=== PATIENT | female | born 1965 | race Caucasian/White ===

== ENCOUNTER 2016-08-08 02:49 | Emergency (ER) | payer SELFPAY ==
--- NOTE | 2016-08-08 02:57 | ED CLINICAL REPORT ---
Clinical Report - Physicians/Mid Levels [facility] [address] [place] [address] 08/08/2016 2:51 Patient: DAKOTA ZHANG Time Seen: 03:40. Arrived- By private vehicle. Historian- patient. HISTORY OF PRESENT ILLNESS Location of injuries- chest. Chief Complaint: Injury to CHEST. The injury occurred about 1 month ago, but exacerbated tonight. (PT fell about a month ago and injured her L ribs. She states that x-rays didn't show anything at the time. She states that she was coughing tonight, when she suddenly felt a "pop" in her L lateral chest wall, and noted a sudden pain in the area, wrapping around toward the back and under her L breast.). Occurred at home. The patient complains of moderate pain. No blow to the head, neck pain, loss of consciousness or seizure. Not dazed. REVIEW OF SYSTEMS No numbness, weakness, hearing loss, headache or loss of vision. No nausea, bladder dysfunction, laceration, fever or vomiting. She has had chest pain. She has had difficulty breathing (hurts to take a deep breath). Has not recently been ill. All systems otherwise negative, except as recorded above. PAST HISTORY Problems: Degenerative Joint Disease. Herniated Disk. Tetanus Status. Endometritis. Constipation. Depression. Gastroesophageal Reflux Disease. Immunizations. LNMP - Last Normal Menstrual Period. Additional Surgeries: Cholecystectomy. Colonoscopy. . Endometrial biopsy. Hysterectomy. Qveries . Medications: CeleXA Oral. Allergies: No Known Drug Allergy. SOCIAL HISTORY Smoker- current status unknown. No alcohol use or drug use. ADDITIONAL NOTES The nursing notes have been reviewed. PHYSICAL EXAM Vital Signs: 08/08/2016 02:57 BP: 139/77. HR: 73. RR: 18. O2 saturation: 97%. Temp: 98.0 F. Have been reviewed. Appearance: Alert. Oriented X3. Patient in mild distress. Distress appears due to pain. Head: Head non-tender. No swelling of head. Eyes: Pupils equal, round and reactive to light. EOM intact. ENT: No dental injury. Pharynx normal. Neck: Painless ROM. Non-tender. CVS: Heart sounds normal. Pulses normal. Respiratory: Chest wall injury: moderate tenderness located in the middle, left and lateral chest. No swelling. No laceration. No abrasion. No ecchymosis. No deformity. Breath sounds normal. Abdomen: No visible injury. Soft and nontender. Back: No tenderness. ROM normal. Skin: Skin intact. Skin warm and dry. Normal skin color. Normal skin turgor. Extremities: Normal inspection. Pelvis stable. Extremities atraumatic. No lower extremity edema. Neuro: Oriented X 3. No motor deficit. No sensory deficit. LABS, X-RAYS, AND EKG Sternum / Ribs X-rays: No fracture present. Normal lung markings present. Soft tissues normal. No bony lesion present. Views: left ribs. AP of chest. The X-rays were independently viewed by me and interpreted contemporaneously by me. Pulse Oximetry: 08/08/2016 02:57 O2 saturation: 97%. (FIO2 - room air). Interpretation: normal. PROGRESS AND PROCEDURES Course of Care: Pt was given IM Toradol and Dilaudid, with improvement in her sx. X-ray series showed no fractures. No emergent condition identified. Patient and spouse counseled in person regarding the patient's stable condition, test results, diagnosis and need for follow-up. Concerns were addressed. Old medical records reviewed. Disposition: Discharged. Condition: stable and improved. CLINICAL IMPRESSION Chest wall pain .12 lead EKG performed. INSTRUCTIONS Warnings: SEDATIVE MEDICATION: You were given sedative medication during your visit. Do not drive or operate dangerous machinery for 6 hours. GENERAL WARNINGS: Return or contact your physician immediately if your condition worsens or changes unexpectedly, if not improving as expected, or if other problems arise. Your Current Medications: CONTINUE TAKING THE FOLLOWING MEDICATIONS: CeleXA Oral. Prescription Medications: Oxycodone 5 mg tablets: take 1 orally every 6 hours as needed for pain. Dispense fifteen (15). No refill. Follow-up: Follow up with your doctor in three weeks if not better. Understanding of the discharge instructions verbalized by patient and family. (Electronically signed by Lydia Calderon MD 08/08/2016 8:11)
--- NOTE | 2016-08-08 03:04 | ED NURSING NOTES ---
Clinical Report - Nurses [facility] [address] [place] [address] 08/08/2016 2:51 Patient: DAKOTA ZHANG TRIAGE Triage time 02:57. Acuity: LEVEL 4. Chief Complaint: FALL (pt on ice a month ago and complains of rib pain on the left side tonight). --03:02 TonyaB, R.N. 02:57 08/08/16. BP: 139/77. HR: 73. RR: 18. O2 saturation: 97%. Temp: 98.0 F. Pain level now 03/15. --03:02 TonyaB, R.N. Weight: 95.2 kg. Height/Length: 64 inches. BMI: 36.1. --03:00 TonyaB, R.N. Medications CeleXA Oral. --02:59 TonyaB, R.N. Allergies No Known Drug Allergy. --02:58 TonyaB, R.N. History Arrived by private vehicle. Historian: patient. Accompanied by family. This occurred (1 months). Limited ROM present. She has had difficulty breathing. No loss of consciousness. No alteration in mental status, dizziness, neck pain, extremity pain or back pain. No trouble walking. Treatment BODY MAN: None. Trauma activation: Pre-hospital notification of patient arrival was not received. PAST MEDICAL HX: Positive. Tetanus status: up-to-date. Immunizations: up-to-date. SOCIAL HX: Current every day smoker. No alcohol use or drug use. No infectious disease exposure. SELF HARM ASSESSMENT: A self harm assessment was performed. The patient answered "no" to the question "Have you recently felt down, depressed, or hopeless?", "Have you noticed less interest or pleasure in doing things?", "Do you have thoughts of harming or killing yourself?", "Are you here because you tried to hurt yourself?", "Have you ever tried to hurt yourself before today?", "Have you recently had thoughts about harming or killing others?" and "Do you have any dangerous items in your possession?". FALL RISK ASSESSMENT: Fall risk assessment completed. No fall risk identified. NUTRITIONAL RISK ASSESSMENT: The nutritional risk assessment revealed no deficiencies. FUNCTIONAL ASSESSMENT: Functional assessment: no impairments noted. LEARNING NEEDS ASSESSMENT: The learning needs assessment revealed no barriers. SKIN INTEGRITY ASSESSMENT: Skin integrity risk assessment completed. No skin integrity risk identified. --03:02 Allie Mcclain Interventions ID band on patient. To treatment room. --03:02 Allie Mcclain PHYSICAL ASSESSMENT GENERAL / NEURO / PSYCH: Alert. Oriented X 4. Appears in pain. HEENT: Pupils equal, round and reactive to light. Head non-tender. RESPIRATORY: Chest wall injury: tenderness. CVS: Normal heart rate and rhythm. Pulses within normal limits. Capillary refill less than 2 seconds. GI / : Abdomen soft and nontender. EXTREMITIES: Extremities exhibit normal ROM. Neuro-vascular status intact to the extremity. SKIN: Skin intact. Skin is warm and dry. --03:03 Allie Mcclain CVS: Left breast area : tenderness. --03:03 Allie Mcclain NURSING PROGRESS NOTES 04:04 08/08/2016 Toradol (Ketorolac Tromethamine) IM 60 mg given. Given in the right gluteus velma. Allergies verified and confirmed 5 rights. --04:04 Allie Mcclain 04:04 08/08/2016 Dilaudid (HYDROmorphone HCl PF) IM 1 mg given. Given in the right gluteus velma. Allergies verified, confirmed 5 rights and sedative warning given to the patient and patient's family. --04:04 Allie Mcclain DISPOSITION / DISCHARGE Condition at departure: unchanged. No learning barriers present. Discharge instructions provided and reviewed with the patient. Reviewed medication(s) side effects, precautions, dosing and course information. Prescription(s) given to the patient. Patient verbalized understanding. Written instructions provided in Azeri. The patient was discharged by the physician. She was discharged home and accompanied by spouse. She left the Emergency Department ambulatory and via private vehicle. Spouse driving. FALL RISK ASSESSMENT: Fall risk assessment completed. No fall risk identified. --04:06 Allie Mcclain 04:04 08/08/16. BP: 138/79. HR: 78. RR: 20. O2 saturation: 98%. Temp: deferred. Pain level now: 10/13. --04:06 Allie Mcclain Departure time: 04:. --04:06 Allie Mcclain Locked/Released at 08/09/2016 19:58 by Allie Mcclain
--- NOTE | 2016-08-08 03:04 | ED NURSING NOTES ---
Clinical Report - Nurses [place] [address] [place] [address] 08/08/2016 2:51 Patient: DAKOTA ZHANG TRIAGE Triage time 02:57. Acuity: LEVEL 4. Chief Complaint: FALL (pt on ice a month ago and complains of rib pain on the left side tonight). --03:02 TonyaB, R.N. 02:57 08/08/16. BP: 139/77. HR: 73. RR: 18. O2 saturation: 97%. Temp: 98.0 F. Pain level now 03/15. --03:02 TonyaB, R.N. Weight: 95.2 kg. Height/Length: 64 inches. BMI: 36.1. --03:00 TonyaB, R.N. Medications CeleXA Oral. --02:59 TonyaB, R.N. Allergies No Known Drug Allergy. --02:58 TonyaB, R.N. History Arrived by private vehicle. Historian: patient. Accompanied by family. This occurred (1 months). Limited ROM present. She has had difficulty breathing. No loss of consciousness. No alteration in mental status, dizziness, neck pain, extremity pain or back pain. No trouble walking. Treatment ROOF TRUSS DETAILER: None. Trauma activation: Pre-hospital notification of patient arrival was not received. PAST MEDICAL HX: Positive. Tetanus status: up-to-date. Immunizations: up-to-date. SOCIAL HX: Current every day smoker. No alcohol use or drug use. No infectious disease exposure. SELF HARM ASSESSMENT: A self harm assessment was performed. The patient answered "no" to the question "Have you recently felt down, depressed, or hopeless?", "Have you noticed less interest or pleasure in doing things?", "Do you have thoughts of harming or killing yourself?", "Are you here because you tried to hurt yourself?", "Have you ever tried to hurt yourself before today?", "Have you recently had thoughts about harming or killing others?" and "Do you have any dangerous items in your possession?". FALL RISK ASSESSMENT: Fall risk assessment completed. No fall risk identified. NUTRITIONAL RISK ASSESSMENT: The nutritional risk assessment revealed no deficiencies. FUNCTIONAL ASSESSMENT: Functional assessment: no impairments noted. LEARNING NEEDS ASSESSMENT: The learning needs assessment revealed no barriers. SKIN INTEGRITY ASSESSMENT: Skin integrity risk assessment completed. No skin integrity risk identified. --03:02 Allie Mcclain Interventions ID band on patient. To treatment room. --03:02 Allie Mcclain PHYSICAL ASSESSMENT GENERAL / NEURO / PSYCH: Alert. Oriented X 4. Appears in pain. HEENT: Pupils equal, round and reactive to light. Head non-tender. RESPIRATORY: Chest wall injury: tenderness. CVS: Normal heart rate and rhythm. Pulses within normal limits. Capillary refill less than 2 seconds. GI / : Abdomen soft and nontender. EXTREMITIES: Extremities exhibit normal ROM. Neuro-vascular status intact to the extremity. SKIN: Skin intact. Skin is warm and dry. --03:03 Allie Mcclain CVS: Left breast area : tenderness. --03:03 Allie Mcclain NURSING PROGRESS NOTES 04:04 08/08/2016 Toradol (Ketorolac Tromethamine) IM 60 mg given. Given in the right gluteus velma. Allergies verified and confirmed 5 rights. --04:04 Allie Mcclain 04:04 08/08/2016 Dilaudid (HYDROmorphone HCl PF) IM 1 mg given. Given in the right gluteus velma. Allergies verified, confirmed 5 rights and sedative warning given to the patient and patient's family. --04:04 Allie Mcclain DISPOSITION / DISCHARGE Condition at departure: unchanged. No learning barriers present. Discharge instructions provided and reviewed with the patient. Reviewed medication(s) side effects, precautions, dosing and course information. Prescription(s) given to the patient. Patient verbalized understanding. Written instructions provided in Persian. The patient was discharged by the physician. She was discharged home and accompanied by spouse. She left the Emergency Department ambulatory and via private vehicle. Spouse driving. FALL RISK ASSESSMENT: Fall risk assessment completed. No fall risk identified. --04:06 Allie Mcclain 04:04 08/08/16. BP: 138/79. HR: 78. RR: 20. O2 saturation: 98%. Temp: deferred. Pain level now: 10/13. --04:06 Allie Mcclain Departure time: 04:. --04:06 Allie Mcclain Locked/Released at 08/09/2016 19:58 by Allie Mcclain
--- NOTE | 2016-08-08 03:57 | ED ORDER SUMMARY ---
..... Patient: DAKOTA ZHANG OrderSheet [facility] VisitID: [id number] [address] [place] [address] 50y, F Registration Date/Time: 08/08/2016 ORDER SHEET Weight: 95.2 kg Allergies: No Known Drug Allergy GENERAL ORDERS: Ribs Unilat w PA Chest Left Urgent (03:13 08/08/2016 TBownaomi R.NMichelle verbal order read back to Michelle BOYER) (Ack 3:15 [facility] ER Academic Intern) (3:21 RFay) Verbal order read back and verified MEDICATION ORDERS: Hydrocodone-APAP PO 10/650 mg (NOW, HIGH ALERT MEDICATION) (03:43 08/08/2016 Michelle BOYER) (Cancelled: Allergy3:54 Michelle BOYER) Toradol IM 60 mg (NOW) (03:43 08/08/2016 Michelle BOYER) (4:04 TBowen R.N.) Dilaudid IM 1 mg (HIGH ALERT MEDICATION, NOW) (03:55 08/08/2016 Michelle BOYER) (4:04 TBesperanza R.N.) IV FLUIDS: ORDER SHEET NOTES: [Electronically signed by Lydia Calderon MD (08:11 08/08/2016)] [Electronically signed by Yany Ulloa R.N. (19:58 08/09/2016)] [Electronically locked/signed by Yany Ulloa R.N. (19:58 08/09/2016)]
--- NOTE | 2016-08-08 03:57 | ED ORDER SUMMARY ---
..... Patient: DAKOTA ZHANG OrderSheet [facility] VisitID: [id number] [address] [place] [address] 50y, F Registration Date/Time: 08/08/2016 ORDER SHEET Weight: 95.2 kg Allergies: No Known Drug Allergy GENERAL ORDERS: Ribs Unilat w PA Chest Left Urgent (03:13 08/08/2016 TBownaomi R.NMichelle verbal order read back to Michelle BOYER) (Ack 3:15 [facility] ER Authorization Specialist) (3:21 RFay) Verbal order read back and verified MEDICATION ORDERS: Hydrocodone-APAP PO 10/650 mg (NOW, HIGH ALERT MEDICATION) (03:43 08/08/2016 Michelle BOYER) (Cancelled: Allergy3:54 Michelle BOYER) Toradol IM 60 mg (NOW) (03:43 08/08/2016 Michelle BOYER) (4:04 TBowen R.N.) Dilaudid IM 1 mg (HIGH ALERT MEDICATION, NOW) (03:55 08/08/2016 Michelle BOYER) (4:04 TBesperanza R.N.) IV FLUIDS: ORDER SHEET NOTES: [Electronically signed by Lydia Calderon MD (08:11 08/08/2016)] [Electronically signed by Yany Ulloa R.N. (19:58 08/09/2016)] [Electronically locked/signed by Yany Ulloa R.N. (19:58 08/09/2016)]
--- NOTE | 2016-08-08 08:53 | DIAGNOSTIC IMAGING REPORT ---
PROCEDURE: XR RIBS UNILAT W/PA CHEST-LT INDICATION: PAIN TECHNIQUE: Two views of the left ribs with single PA view chest. COMPARISON: 03/14/2012 FINDINGS: LEFT RIBS: No displaced rib fractures. No suspicious rib lesions. CHEST: Normal cardiomediastinal contour and central vessels. Coarse interstitial markings, particularly at the lung bases, stable to mildly increased compared to the previous study. No dense consolidations, effusion, or pneumothorax. Intact osseous structures. Surgical clips in the gallbladder fossa. IMPRESSION: 1. Intact left ribs. 2. Chronically coarse interstitial markings. Nonspecific, but consider interstitial lung disease. Correlate clinically.
--- NOTE | 2016-08-09 19:58 | ED MAR SUMMARY ---
..... Medication Administration Record [facility] [address] [place] [address] Patient: DAKOTA ZHANG Visit ID: [id number] 50y, F Weight: 95.2 kg Height/Length: 64 in BMI: 36.1 ALLERGIES: No Known Drug Allergy Given 04:04 08/08/2016 Johny R.N. Medication Administered: TORADOL [IM] (KETOROLAC TROMETHAMINE), Dose: 60 mg IM. Medication Ordered: Toradol IM 60 mg (NOW). Given 04:04 08/08/2016 Johny, R.N. Medication Administered: DILAUDID [IM] (HYDROMORPHONE HCL PF), Dose: 1 mg IM. Medication Ordered: Dilaudid IM 1 mg (HIGH ALERT MEDICATION, NOW).
--- NOTE | 2016-08-09 19:58 | ED MAR SUMMARY ---
..... Medication Administration Record [facility] [address] [place] [address] Patient: DAKOTA ZHANG Visit ID: [id number] 50y, F Weight: 95.2 kg Height/Length: 64 in BMI: 36.1 ALLERGIES: No Known Drug Allergy Given 04:04 08/08/2016 Johny R.N. Medication Administered: TORADOL [IM] (KETOROLAC TROMETHAMINE), Dose: 60 mg IM. Medication Ordered: Toradol IM 60 mg (NOW). Given 04:04 08/08/2016 Johny, R.N. Medication Administered: DILAUDID [IM] (HYDROMORPHONE HCL PF), Dose: 1 mg IM. Medication Ordered: Dilaudid IM 1 mg (HIGH ALERT MEDICATION, NOW).
--- NOTE | 2016-08-09 19:58 | ED DISCHARGE INSTRUCTIONS ---
Patient: DAKOTA ZHANG General Instructions [facility] VisitID: [id number] [place] [address] 50y, F Registration Date/Time: 08/08/2016 Chest wall pain .12 lead EKG performed. INSTRUCTIONS Warnings: SEDATIVE MEDICATION: You were given sedative medication during your visit. Do not drive or operate dangerous machinery for 6 hours. GENERAL WARNINGS: Return or contact your physician immediately if your condition worsens or changes unexpectedly, if not improving as expected, or if other problems arise. Your Current Medications: CONTINUE TAKING THE FOLLOWING MEDICATIONS: CeleXA Oral. Prescription Medications: Oxycodone 5 mg tablets: take 1 orally every 6 hours as needed for pain. Dispense fifteen (15). No refill. Follow-up: Follow up with your doctor in three weeks if not better. Understanding of the discharge instructions verbalized by patient and family. ADDITIONAL INFORMATION Chest Strain A strain of the chest is due to stretching and tearing of the muscle fibers between the ribs. This may occur as a result of severe coughing, strenuous lifting or twisting injuries of the upper back. This usually causes increased pain with movement or deep breathing. This may take a few days to a few weeks to heal. Home Care: Rest. Avoid heavy lifting or strenuous exertion. Avoid any activity that causes pain. If you have a severe cough, use a cough syrup such as Robitussin DM (containing dextromethorphan) unless another cough medicine was prescribed. You may use acetaminophen (Tylenol) or ibuprofen (Motrin, Advil) to control pain, unless another medicine was prescribed. [ NOTE: If you have chronic liver or kidney disease or ever had a stomach ulcer or GI bleeding, talk with your doctor before using these medicines.] Follow Up with your doctor as directed. Get Prompt Medical Attention if any of the following occur: A change in the type of pain: if it feels different, becomes more severe, lasts longer, or begins to spread into your shoulder, arm, neck, jaw or back Shortness of breath or increased pain with breathing Cough with dark colored sputum (phlegm) or blood Weakness, dizziness, or fainting Fever of 100.4F (38C) or higher, or as directed by your healthcare provider You have been given the following additional information: Chest Wall Strain (Electronically signed by Lydia Calderon MD 08/08/2016 8:11)
--- NOTE | 2016-08-09 19:59 | ED MED RECONCILIATION SUMMARY ---
Patient: DAKOTA ZHANG Medication Reconciliation Report [facility] VisitID: [id number] [address] [place] [address] 50y, F Registration Date/Time: 08/08/2016 Weight: 95.2 kg Height/Length: 64 in. BMI: 36.1 ALLERGIES: No Known Drug Allergy The patient's Home Medications are listed below: CONTINUE TAKING THE FOLLOWING MEDICATIONS: CeleXA Oral The source(s) of the original Home Medication information: Not obtained. The following Medications were given to the patient in the Emergency Department: Toradol [IM] IM 60 mg, administered: 08/08/2016 4:04:00 AM Dilaudid [IM] IM 1 mg, administered: 08/08/2016 4:04:00 AM The following Medications were prescribed to the patient: Oxycodone 5 mg tablets: take 1 orally every 6 hours as needed for pain. Dispense fifteen (15). No refill. -- Lydia Calderon MD
--- NOTE | 2016-08-09 19:59 | ED MED RECONCILIATION SUMMARY ---
Patient: DAKOTA ZHANG Medication Reconciliation Report [facility] VisitID: [id number] [address] [place] [address] 50y, F Registration Date/Time: 08/08/2016 Weight: 95.2 kg Height/Length: 64 in. BMI: 36.1 ALLERGIES: No Known Drug Allergy The patient's Home Medications are listed below: CONTINUE TAKING THE FOLLOWING MEDICATIONS: CeleXA Oral The source(s) of the original Home Medication information: Not obtained. The following Medications were given to the patient in the Emergency Department: Toradol [IM] IM 60 mg, administered: 08/08/2016 4:04:00 AM Dilaudid [IM] IM 1 mg, administered: 08/08/2016 4:04:00 AM The following Medications were prescribed to the patient: Oxycodone 5 mg tablets: take 1 orally every 6 hours as needed for pain. Dispense fifteen (15). No refill. -- Lydia Calderon MD
== END 2016-08-08 04:00 | disposition home or self-care (01) ==
LOC: ED SRH 02:49
DX: R07.89 Other chest pain (principal); W19.XXXA Unspecified fall, initial encounter; Y92.009 Unspecified place in unspecified non-institutional (private) residence as the place of occurrence of the external cause; Z79.899 Other long term (current) drug therapy